=== PATIENT | male | born 1995 | race African-American/Black ===

== ENCOUNTER 2017-05-08 18:47 | Emergency (ER) | payer OTHER ==
[~2017-05-08] VITALS: Ht 175.3 cm; Wt 54.4 kg
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
[2017-05-08 20:40] VITALS: BP 112/65
== END 2017-05-08 20:40 | disposition home or self-care (01) ==
LOC: ER 18:47
DX: M79.672 Pain in left foot (principal); M79.671 Pain in right foot; F84.0 Autistic disorder; F90.9 Attention-deficit hyperactivity disorder, unspecified type
CPT/HCPCS: 99283

== ENCOUNTER 2017-09-01 15:11 | Emergency (ER) | payer OTHER ==
[2017-09-01] MEDS ORDERED: MAGNESIUM CITRATE 296 ML SOLUTION. (16:15)
[2017-09-01] MEDS: MAGNESIUM CITRATE 296 ML SOLUTION. PO (16:19)
== END 2017-09-01 16:22 | disposition home or self-care (01) ==
LOC: ER 15:11
DX: F90.9 Attention-deficit hyperactivity disorder, unspecified type (principal); R10.13 Epigastric pain; F84.0 Autistic disorder; F79 Unspecified intellectual disabilities
CPT/HCPCS: 99282

== ENCOUNTER 2018-01-05 11:53 | Emergency (ER) | payer OTHER ==
[2018-01-05] MEDS: IBUPROFEN 800 MG TABLET. PO (12:20)
== END 2018-01-05 12:21 | disposition home or self-care (01) ==
LOC: ER 12:21
DX: S76.912A Strain of unspecified muscles, fascia and tendons at thigh level, left thigh, initial encounter (principal); F84.0 Autistic disorder; F90.9 Attention-deficit hyperactivity disorder, unspecified type; W10.9XXA Fall (on) (from) unspecified stairs and steps, initial encounter; Y93.89 Activity, other specified; Y92.89 Other specified places as the place of occurrence of the external cause; Y99.8 Other external cause status
CPT/HCPCS: 99284

== ENCOUNTER → 2018-01-06 | Outpatient (CLI) | payer OTHER | END | disposition home or self-care (01) | LOC: RT 08:48 | DX: F70 Mild intellectual disabilities (principal); F90.9 Attention-deficit hyperactivity disorder, unspecified type; F84.0 Autistic disorder | CPT/HCPCS: 95816 ==